=== PATIENT | male | born 1965 | race Caucasian/White ===

== ENCOUNTER 2020-07-26 09:04 | Emergency (ER) | payer OTHER ==
[2020-07-26] MEDS ORDERED: Amoxicillin/Clavulanate K 875-125 MG Tab PO ONE (10:38)
--- NOTE | 2020-07-26 10:40 | EDM.PDOC ---
ED HPI GENERAL MEDICAL PROBLEM - General Chief Complaint: Bite:Animal, Insect Stated Complaint: DOG BITE Time Seen by Provider: 07/26/20 10:25 Source of Information: Reports: Patient History Limitations: Reports: No Limitations - History of Present Illness INITIAL COMMENTS - FREE TEXT/NARRATIVE: This is a 54-year-old male presents with concerns of a dog bite. Approximately 36 hours ago he was bitten on the left hand by his pet dog. He notes a small puncture wound on the dorsum and palmar side of his thenar eminence. Since this time he is noted increasing swelling and pain. There has not been any purulence. No fevers or chills. No pain with finger flexion/extension. Left Hand Pain Score (Numeric/FACES): 10 - Related Data Allergies Allergy/AdvReac Type Severity Reaction Status Date / Time No Known Allergies Allergy Verified 07/26/20 09:31 Home Meds: Home Meds Amoxicillin/Clavulanate K [Augmentin 875-125 MG] 1 tab PO BID #14 tablet 07/26/20 [Rx] Simvastatin 1 tab PO DAILY 07/26/20 [History] atenoloL [Atenolol] 50 mg PO DAILY 07/26/20 [History] azaTHIOprine [Azathioprine] 150 mg PO DAILY 07/26/20 [History] Past Medical History Cardiovascular History: Reports: High Cholesterol, Hypertension Endocrine/Metabolic History: Reports: Obesity/BMI 30+ - Past Surgical History Musculoskeletal Surgical History: Reports: Shoulder Surgery, Other (See Below) Other Musculoskeletal Surgeries/Procedures:: bilateral ACL repair Social & Family History - Tobacco Use Tobacco Use Status *Q: Never Tobacco User Second Hand Smoke Exposure: No - Caffeine Use Caffeine Use: Reports: Coffee, Energy Drinks, Soda, Tea - Alcohol Use Days Per Week of Alcohol Use: 7 Number of Drinks Per Day: 4 Total Drinks Per Week: 28 - Recreational Drug Use Recreational Drug Use: No ED ROS GENERAL - Review of Systems Review Of Systems: See Below Constitutional: Reports: No Symptoms HEENT: Reports: No Symptoms Respiratory: Reports: No Symptoms Cardiovascular: Reports: No Symptoms Endocrine: Reports: No Symptoms GI/Abdominal: Reports: No Symptoms : Reports: No Symptoms Musculoskeletal: Reports: No Symptoms Skin: Reports: Rash, Erythema Neurological: Reports: No Symptoms Psychiatric: Reports: No Symptoms Hematologic/Lymphatic: Reports: No Symptoms Immunologic: Reports: No Symptoms ED EXAM, ANIMAL BITE - Physical Exam Exam: See Below Exam Limited By: No Limitations General Appearance: Alert, No Apparent Distress Ears: Normal External Exam Nose: Normal Inspection Throat/Mouth: Normal Inspection Head: Atraumatic, Normocephalic Neck: Normal Inspection Respiratory/Chest: No Respiratory Distress Cardiovascular: Regular Rate, Rhythm GI/Abdominal: No Distention Extremities: Other (Small puncture wound noted on the dorsal and plantar aspects of the thenar eminence of left hand. There is some surrounding erythema on the dorsum of the left hand. There is no fluctuance. Flexion/extension of the fingers is normal without pain.) Course - Vital Signs Last Recorded V/S: Last Vital Signs Temp 36.6 C 07/26/20 09:39 Pulse 74 07/26/20 09:39 Resp 16 07/26/20 09:39 BP 163/95 H 07/26/20 09:39 Pulse Ox 99 07/26/20 09:39 - Orders/Labs/Meds Meds: Medications Discontinued Medications Generic Name Dose Route Start Last Admin Trade Name Sary PRN Reason Stop Dose Admin Amoxicillin/Clavulanate Potassium 1 tab 07/26/20 10:38 Amoxicillin/Clavulanate K 875-125 Mg Tab PO 07/26/20 10:39 ONETIME ONE - Re-Assessments/Exams Free Text/Narrative Re-Assessment/Exam: 54-year-old male presents with concerns of dog bite to left hand. On exam he has puncture wounds on the thenar eminence of his left hand, there is surrounding erythema that goes part way up the left dorsum of the hand. [id number] ultrasound shows cobblestoning without any obvious abscess. Exam findings are consistent with a cellulitis without concerning findings of possible joint infection or flexor tenosynovitis at this time. We will start him on Augmentin. We carefully discussed return precautions that would indicate worsening infection in the hand. 07/26/20 10:45 Departure - Departure Time of Disposition: 10:38 Disposition: Home, Self-Care 01 Clinical Impression: Dog bite Qualifiers: Encounter type: initial encounter Qualified Code(s): W54.0XXA - Bitten by dog, initial encounter - Discharge Information *PRESCRIPTION DRUG MONITORING PROGRAM REVIEWED*: No *COPY OF PRESCRIPTION DRUG MONITORING REPORT IN PATIENT MONO: No Prescriptions: Amoxicillin/Clavulanate K [Augmentin 875-125 MG] 1 tab PO BID #14 tablet Instructions: Animal Bite, Adult Referrals: PCP,None [Primary Care Provider] - Forms: ED Department Discharge Additional Instructions: As discussed, there is evidence that your dog bite has become infected. Is importantly take the prescribed antibiotic. Need to be on the look out for signs of worsening infection such as increased pain, swelling, redness, or significant discomfort when you flex your fingers. It would be good to make a follow-up appoint with your primary doctor in the [facility] this week. Thank you for trusting us to care for you today. Sepsis Event Note (ED) - Evaluation Sepsis Screening Result: No Definite Risk - Focused Exam Vital Signs: Vital Signs Temp Pulse Resp BP Pulse Ox 07/26/20 09:39 36.6 C 74 16 163/95 H 99 07/26/20 09:30 36.6 C 74 16 163/95 H 99
== END 2020-07-26 10:47 | disposition home or self-care (01) ==
LOC: JP.ED 09:04
DX: S61.452A Open bite of left hand, initial encounter (principal); E78.00 Pure hypercholesterolemia, unspecified; I10 Essential (primary) hypertension; E66.9 Obesity, unspecified; Z68.32 Body mass index [BMI] 32.0-32.9, adult; Z79.899 Other long term (current) drug therapy; W54.0XXA Bitten by dog, initial encounter
CPT/HCPCS: 99283

== ENCOUNTER 2024-05-07 10:59 | Emergency (ER) | payer BC ==
[2024-05-07] MEDS: fentaNYL 100 MCG/2 ML SDV IVPUSH ONE (13:17)
[2024-05-07 13:21] LABS: APPEARANCE,URINE CLEAR (CLEAR); BILIRUBIN,URINE NEGATIVE (NEGATIVE); COLOR,URINE YELLOW (YELLOW); GLUCOSE,URINE NEGATIVE (NEGATIVE); KETONES,URINE NEGATIVE (NEGATIVE); LEUKOCYTE ESTERASE,URINE NEGATIVE (NEGATIVE); NITRITE,URINE NEGATIVE (NEGATIVE); OCCULT BLOOD,URINE NEGATIVE (NEGATIVE); PROTEIN,URINE NEGATIVE (NEGATIVE); UROBILINOGEN,URINE 0.2 EU/dL (0.2-1.0)
[2024-05-07 13:24] LABS: BASOPHILS ABSOLUTE AUTO 0.05 K/uL (0.00-0.10); BASOPHILS PERCENT AUTO 0.8 % (0.1-1.3); EOSINOPHILS ABSOLUTE AUTO 0.09 K/uL (0.00-0.40); EOSINOPHILS PERCENT AUTO 1.4 % (0.0-5.4); HEMATOCRIT 44.7 % (38.4-49.7); HEMOGLOBIN 15.6 g/dL (12.9-16.9); IMMATURE GRAN PERCENT AUTO 0.2 % (0.0-0.7); LYMPHOCYTES ABSOLUTE AUTO 1.58 K/uL (0.8-3.3); LYMPHOCYTES PERCENT AUTO 24.9 % (11.4-47.7); MEAN CORPUSCULAR HEMOGLOBIN 33.1 pg (31.6-35.5); MEAN CORPUSCULAR HGB CONC 34.9 g/dL (31.6-35.5); MEAN CORPUSCULAR VOLUME 94.9 fL (81.4-99.0); MONOCYTES ABSOLUTE AUTO 0.54 K/uL (0.20-0.90); MONOCYTES PERCENT AUTO 8.5 % (3.3-12.6); NEUTROPHILS ABSOLUTE AUTO 4.08 K/uL (1.0-7.6); NEUTROPHILS PERCENT AUTO 64.2 % (40.0-78.1); PLATELET COUNT,PLT 292 K/uL (130-375); RED BLOOD CELL COUNT 4.71 M/uL (4.14-5.76); WHITE BLOOD CELL COUNT,WBC 6.4 K/uL (3.2-11.0)
[2024-05-07 13:26] LABS: IMMATURE GRAN ABSOLUTE AUTO 0.01 K/uL (0.00-0.23)
[2024-05-07 13:33] LABS: A/G RATIO 1.3 (1.2-2.2); ALANINE AMINOTRANSFERASE,ALT 36 U/L (12-78); ALBUMIN 3.9 g/dL (3.4-5.0); ALKALINE PHOSPHATASE 74 U/L (46-116); ANION GAP 6.2 mmol/L (5.0-14.0); ASPARTATE AMNIOTRANSFERASE,AST 22 U/L (15-37); BILIRUBIN TOTAL 0.9 mg/dL (0.2-1.0); BLOOD UREA NITROGEN,BUN 12 mg/dL (7-18); CALCIUM 9.8 mg/dL (8.5-10.1); CARBON DIOXIDE,CO2 27 mmol/L (21-32); CHLORIDE,CL 108 mmol/L (100-108); CREATININE 0.8 mg/dL (0.8-1.3); EST CRCL DRUG DOSING (CG) 114.17 mL/min; ESTIMATED GFR 101 mL/min (>60); GLUCOSE RANDOM 78 mg/dL (74-106); POTASSIUM,K 4.3 mmol/L (3.6-5.2); PROTEIN TOTAL,TP 6.9 g/dL (6.4-8.2); SODIUM,NA 141 mmol/L (140-148)
[2024-05-07 13:41] LABS: RBC,URINE 0-5 (0-5); WBC,URINE 0-5 (0-5)
[2024-05-07 13:42] LABS: AMORPHOUS SEDIMENT,URINE NOT SEEN; BACTERIA,URINE RARE; EPITHELIAL CELLS,URINE RARE; MUCUS,URINE NOT SEEN
[2024-05-07] MEDS: Sodium Chloride 0.9% 80 ML IV SCH (13:46)
[2024-05-07] MEDS: Sodium Chloride 0.9% 10 ML Syringe FLUSH PRN (13:46)
[2024-05-07] MEDS: Iopamidol 612 MG/ML 100 ML Bottle IV SCH (13:46)
== END 2024-05-07 15:40 | disposition home or self-care (01) ==
LOC: JP.ED 10:59
DX: R10.9 Unspecified abdominal pain (principal); I10 Essential (primary) hypertension; E78.00 Pure hypercholesterolemia, unspecified; Z79.899 Other long term (current) drug therapy; Z68.30 Body mass index [BMI] 30.0-30.9, adult
CPT/HCPCS: 36415; 74178; 74178-26; 80053; 81001; 85025; 96374; 99283; 99284-25; J3010; Q9967

== ENCOUNTER 2024-06-26 06:37 | Day surgery (SDC) | payer BC ==
[2024-06-26 07:13] LABS: HEMATOCRIT 43.3 % (38.4-49.7); HEMOGLOBIN 14.6 g/dL (12.9-16.9); MEAN CORPUSCULAR HEMOGLOBIN 32.4 pg (31.6-35.5); MEAN CORPUSCULAR HGB CONC 33.7 g/dL (31.6-35.5); MEAN CORPUSCULAR VOLUME 96.2 fL (81.4-99.0); RED BLOOD CELL COUNT 4.5 M/uL (4.14-5.76)
[2024-06-26] MEDS ORDERED: Propofol 200 MG/20 ML SDV ONE (07:30)
[2024-06-26] MEDS ORDERED: Neostigmine Methylsulfate 10 MG/10 ML MDV ONE (07:30)
[2024-06-26] MEDS ORDERED: Dexamethasone 4 MG/ML SDV ONE (07:30)
[2024-06-26] MEDS ORDERED: Ondansetron 4 MG/2 ML SDV ONE (07:30)
[2024-06-26] MEDS ORDERED: fentaNYL 250 MCG/5 ML SDV ONE ×2 (07:30→08:30)
[2024-06-26] MEDS ORDERED: Succinylcholine 200 MG/10 ML MDV ONE (07:30)
[2024-06-26] MEDS ORDERED: Glycopyrrolate 0.2 MG/ML 5 ML MDV ONE (07:30)
[2024-06-26] MEDS ORDERED: Rocuronium 50 MG/5 ML Vial ONE (07:30)
[2024-06-26 07:31] LABS: ANION GAP 10.5 mmol/L (5.0-14.0); CALCIUM 9.5 mg/dL (8.5-10.1); CREATININE 0.9 mg/dL (0.8-1.3); EST CRCL DRUG DOSING (CG) 101.48 mL/min; POTASSIUM,K 3.9 mmol/L (3.6-5.2)
[2024-06-26] MEDS: Lactated Ringers 1,000 ML IV SCH (07:40)
[2024-06-26] MEDS: ceFAZolin 2 GM in Premix Bag 1 BAG IV ONE (07:41)
[2024-06-26] MEDS: Albuterol/Ipratropium 3.0-0.5 MG/3 ML Neb Soln NEB ONE (07:42)
[2024-06-26] MEDS: Bupivacaine 0.25%/EPINEPHrine 1:200,000 30 ML SDV ONE (08:35)
[2024-06-26] MEDS: hydrOXYzine HCL 100 MG/2 ML SDV IM ONE (09:24)
[2024-06-26] MEDS: HYDROmorphone 0.5 MG/0.5 ML Syringe IVPUSH PRN (10:05)
[2024-06-26] MEDS: Ondansetron 4 MG/2 ML SDV IVPUSH PRN (10:45)
[2024-06-26] MEDS: oxyCODONE 5 MG Tab PO PRN (10:56)
== END 2024-06-26 13:15 | disposition home or self-care (01) ==
LOC: JP.SDS 06:37
PROVIDERS: ATTEND Surgery
DX: K80.10 Calculus of gallbladder with chronic cholecystitis without obstruction (principal); K82.8 Other specified diseases of gallbladder; I10 Essential (primary) hypertension; E78.5 Hyperlipidemia, unspecified; Z79.899 Other long term (current) drug therapy
CPT/HCPCS: 00790; 36415; 47562; 80048; 85027; 94640; A9270; J0330; J0690; J1100; J1596; J2405; J2704; J2710; J3010; J3410; J7120; J7620; J3490